=== PATIENT | male | born 1935 | race Caucasian/White ===

== ENCOUNTER → 2017-10-17 | Day surgery (SDC) | payer MEDICARE ==
[~2017-10-17] MED LIST: ADVAIR HFA 230M12 GM INH; ASPIR 8181 MG PO; ELIQUIS2.5 MG PO; LIPITOR10 MG PO; NORCO 5-325 TA1 EACH PO; PACERONE 200 M200 MG PO; REMERON15 MG PO; RENAL CAPS SOFTG1 MG PO; SPIRIVA INH
[2017-10-17 06:18] LABS: HEMATOCRIT 35.3 % (42.0-52.0); HEMOGLOBIN 11.9 gm/dL (14.0-18.0); MCH 37.4 pg (26.0-34.0); MCHC 33.6 g/dL (28.0-37.0); MCV 111.3 fL (80.0-100.0); MPV 7.7 fl. (7.2-11.1); RBC 3.18 mil/uL (4.50-6.00); RDW-CV 15.1 % (10.5-14.5); WBC 6.2 thou/uL (4.0-11.0)
[2017-10-17 06:40] LABS: CALCIUM 9.2 mg/dL (8.5-10.1); CREATININE 4.9 mg/dL (0.6-1.3); POTASSIUM 3.8 mmol/L (3.5-5.1)
--- NOTE | 2017-10-17 11:55 | EKG ---
[place] [address] ELECTROCARDIOGRAM REPORT Name: AVTARDI Room: [facility]#: [id number] Admission: 10/17/17 Attend Phys: Horacio Gracia Discharge: Date of : 39 Report #: [id number] THIS REPORT FOR: //name// [facility] Test Date: 2017-10-17 Test Time: 06:36:17 Pat Name: DI NOVA Department: Room: Gender: M Echo Technologist: Phoebe Melton RN : 1935 Requested By: Horacio Gracia Order Number: [id number] Gurwinder MD: Howard Amor Measurements Intervals Perry Rate: 70 P: 69 ME: 200 QRS: 268 QRSD: 200 T: 70 QT: 537 QTc: 580 Interpretive Statements AV paced rhythm No further analysis attempted due to paced rhythm No previous ECG available for comparison Electronically Signed On 10-17-2017 11:54:55 [employer] by Howard Amor [email or web address] <ELECTRONICALLY SIGNED> By: Howard Amor MD, [facility] 10/17/17 1154 0636 5 Howard Amor MD, FACC /EPI
--- NOTE | 2017-11-13 11:46 | OP ---
[facility] [address] [place] [address] OPERATIVE REPORT Name: AVTARDIPATITO CARNEY Room: [facility]#: [id number] Admission: 10/17/17 Attend Phys: Horacio Gracia Discharge: Date of : 39 Report #: [id number] THIS REPORT FOR: //name// CC: Horacio Maharaj DATE OF SERVICE: 10/17/2017 PREOPERATIVE DIAGNOSIS: End-stage renal disease. POSTOPERATIVE DIAGNOSIS: End-stage renal disease. PROCEDURE: Laparoscopic peritoneal dialysis catheter placement. SURGEON: Horacio Gracia MD ANESTHESIA: General. ESTIMATED BLOOD LOSS: Minimal. SPECIMENS: None. DESCRIPTION OF PROCEDURE: After informed consent was obtained, the patient was brought to the operating room and placed supine. SCDs were placed and working, preoperative antibiotics were administered, general anesthesia was induced. The abdomen was prepped and draped in the usual sterile fashion. A 5 mm incision was made in the left upper quadrant. A 5 mm trocar was placed under direct vision. Pneumoperitoneum established. An 8 mm port was placed to the left side of the umbilicus approximately 1 cm above the umbilicus. A 62 cm dialysis catheter was placed into the abdomen under direct vision. It was then tunneled into the left upper quadrant of the abdomen. It was instilled with 750 mL of heparinized saline. The saline flushed and drained easily. The laparoscope was then removed. The incisions were closed with 4-0 Monocryl and sterile dressings were applied to secure the catheter. COMPLICATIONS: None. DISPOSITION: The patient was taken to recovery in satisfactory condition. <ELECTRONICALLY SIGNED> By: Horacio Gracia MD 11/13/17 1146 0829 [id number] Gracia MD /nt
== END | disposition home or self-care (01) ==
LOC: M.SUR 05:56
PROVIDERS: Surgery
DX: N18.6 End stage renal disease (principal); Z79.82 Long term (current) use of aspirin; Z79.899 Other long term (current) drug therapy; Z79.891 Long term (current) use of opiate analgesic

== ENCOUNTER → 2017-11-29 | Day surgery (SDC) | payer MEDICARE ==
[2017-11-29 09:01] LABS: HEMATOCRIT 34.6 % (42.0-52.0); HEMOGLOBIN 11.7 gm/dL (14.0-18.0); MCH 37.8 pg (26.0-34.0); MCHC 33.9 g/dL (28.0-37.0); MCV 111.3 fL (80.0-100.0); MPV 8.2 fl. (7.2-11.1); RBC 3.1 mil/uL (4.50-6.00); RDW-CV 15.9 % (10.5-14.5); WBC 4.6 thou/uL (4.0-11.0)
[2017-11-29 09:08] LABS: CALCIUM 8.7 mg/dL (8.5-10.1); CREATININE 8.9 mg/dL (0.6-1.3)
--- NOTE | 2017-12-06 08:04 | H ---
[place] [address] HISTORY AND PHYSICAL Name: AVTARDI CARNEY Room: [facility]#: [id number] Admission: 11/29/17 Attend Phys: Horacio Gracia Discharge: Date of : 39 Report #: [id number] THIS REPORT FOR: //name// CC: Horacio Maharaj DATE OF SERVICE: 11/29/2017 CHIEF COMPLAINT: End-stage renal disease. HISTORY OF PRESENT ILLNESS: This is a pleasant 82-year-old man who had a laparoscopic peritoneal dialysis catheter placed. He has been learning to use it. He has had this for about 6 weeks. However, recently it has started to not drain. PAST MEDICAL HISTORY: End-stage renal disease, congestive heart failure. PAST SURGICAL HISTORY: He has had an appendectomy and the above-mentioned laparoscopic surgery. SOCIAL HISTORY: No tobacco or alcohol use. ALLERGIES: NKDA. MEDICATIONS: Include Eliquis, amiodarone, aspirin, Lipitor, Advair, Spiriva. REVIEW OF SYSTEMS: Twelve point review of systems negative except for listed in HPI. PHYSICAL EXAMINATION: GENERAL: He is awake, alert, in no acute distress. HEENT: Extraocular movements are intact. Sclerae without icterus. NECK: Supple. CARDIOVASCULAR: Regular rate and rhythm. CHEST: Fair movement bilaterally. ABDOMEN: Soft. There is a peritoneal dialysis catheter placed without any erythema or signs of infection. EXTREMITIES: Without clubbing or cyanosis. ASSESSMENT AND PLAN: An 82-year-old man with malfunctioning peritoneal dialysis catheter. We will plan for diagnostic laparoscopy [place] [address] HISTORY AND PHYSICAL Name: DI NOVA Room: [facility].#: [id number] Admission: 11/29/17 Attend Phys: Horacio Gracia Discharge: Date of : 39 Report #: [id number] peritoneal catheter. The nature of the procedure, risks and benefits were discussed with the patient and he requests to proceed. <ELECTRONICALLY SIGNED> By: Horacio Gracia MD 12/06/17 0804 1127 1148Horacio Gracia MD /nt
--- NOTE | 2017-12-06 08:04 | PROC ---
[facility] [address] [place] [address] PROCEDURE REPORT Name: DI NOVA Room: [facility]#: [id number] Admission: 11/29/17 Attend Phys: Horacio Gracia Discharge: Date of : 39 Report #: [id number] THIS REPORT FOR: //name// CC: Horacio Maharaj DATE OF SERVICE: 11/29/2017 PREOPERATIVE DIAGNOSIS: Malfunctioning peritoneal dialysis catheter. POSTOPERATIVE DIAGNOSIS: Malfunctioning peritoneal dialysis catheter. PROCEDURE: Laparoscopic revision of peritoneal dialysis catheter with removal of obstructing material. SURGEON: Horacio Gracia. ANESTHESIA: General. ESTIMATED BLOOD LOSS: Minimal. DESCRIPTION OF PROCEDURE: After informed consent was obtained, the patient was brought to the operating room and placed supine. SCDs were placed and working, preoperative antibiotics were administered, general anesthesia was induced. The abdomen was prepped and draped in the usual sterile fashion. A 5 mm incision was made in the left upper quadrant. A 5 mm trocar was placed under direct vision. Pneumoperitoneum established. I looked down into the pelvis. The coiled part of the catheter was wrapped up in some epiploic fat. I removed the catheter by just pulling on it and it released itself. The adhesions were broken down bluntly. I then flushed the catheter and it flushed easily with 500 mL of heparinized saline. It also drained very well as well. I used the flush to remove some of the obstructive material from the catheter. The ports were removed under direct vision. The skin was closed with 4-0 Monocryl. Incisions were sealed with Dermabond. COMPLICATIONS: None. DISPOSITION: The patient was taken to recovery in satisfactory condition. <ELECTRONICALLY SIGNED> By: Horacio Gracia MD 12/06/17 0804 1129 1857Horacio Gracia MD /nt
== END | disposition home or self-care (01) ==
LOC: M.SUR 07:00
PROVIDERS: Surgery
DX: T85.691A Other mechanical complication of intraperitoneal dialysis catheter, initial encounter (principal); N18.6 End stage renal disease; I50.9 Heart failure, unspecified; Z90.49 Acquired absence of other specified parts of digestive tract; Z79.82 Long term (current) use of aspirin; Z79.899 Other long term (current) drug therapy; Z79.891 Long term (current) use of opiate analgesic; Y83.8 Other surgical procedures as the cause of abnormal reaction of the patient, or of later complication, without mention of misadventure at the time of the procedure

== ENCOUNTER → 2018-01-16 | Day surgery (SDC) | payer MEDICARE ==
[2018-01-16 09:44] LABS: HEMATOCRIT 34.2 % (42.0-52.0); HEMOGLOBIN 11.3 gm/dL (14.0-18.0); MCH 36.6 pg (26.0-34.0); MCHC 33.2 g/dL (28.0-37.0); MCV 110.1 fL (80.0-100.0); MPV 8.3 fl. (7.2-11.1); RBC 3.1 mil/uL (4.50-6.00); RDW-CV 15.2 % (10.5-14.5); WBC 5.6 thou/uL (4.0-11.0)
[2018-01-16 10:00] LABS: CALCIUM 9.4 mg/dL (8.5-10.1); CREATININE 5.3 mg/dL (0.6-1.3); POTASSIUM 3.5 mmol/L (3.5-5.1)
--- NOTE | 2018-01-31 09:41 | PROC ---
[facility] [address] [place] [address] PROCEDURE REPORT Name: AVTARDI ROMMEL Room: [facility]#: [id number] Admission: 01/16/18 Attend Phys: Horacio Gracia Discharge: Date of : 39 Report #: [id number] THIS REPORT FOR: //name// CC: Horacio Maharaj DATE OF SERVICE: 01/16/2018 PREOPERATIVE DIAGNOSIS: Need for peritoneal catheter removal. POSTOPERATIVE DIAGNOSIS: Need for peritoneal catheter removal. PROCEDURE: Removal of tunneled intraperitoneal catheter. SURGEON: Horacio Gracia MD. ANESTHESIA: General. ESTIMATED BLOOD LOSS: Minimal. DESCRIPTION OF PROCEDURE: After informed consent was obtained, the patient was brought to the operating room and placed supine. SCDs were placed and working, preoperative antibiotics were administered, general anesthesia was induced. The abdomen was prepped and draped in the usual sterile fashion. I made a counterincision at the internal cuff site. The cuff was then freed up. I then extended the external incision approximately 1 cm medial and freed up the external cuff. The catheter was then pulled out easily. The counterincision was closed with a running 4-0 Monocryl. Incision was dressed with Dermabond and sterile dressings were applied. COMPLICATIONS: None. DISPOSITION: The patient was taken to recovery in satisfactory condition. <ELECTRONICALLY SIGNED> By: Horacio Gracia MD 01/31/18 0941 1219 1749Horacio Gracia MD /kristy
== END | disposition home or self-care (01) ==
LOC: M.SUR 08:53
PROVIDERS: Surgery
DX: Z49.02 Encounter for fitting and adjustment of peritoneal dialysis catheter (principal); Z79.82 Long term (current) use of aspirin; Z79.899 Other long term (current) drug therapy; Z79.891 Long term (current) use of opiate analgesic